=== PATIENT | female | born 1975 | race African-American/Black ===

== ENCOUNTER → 2016-06-27 | Outpatient (CLI) | payer BC | LOC: OD 11:49 | PROVIDERS: ATTEND Nurse Practitioner Primary Care | DX: R31.9 Hematuria, unspecified (principal) ==

== ENCOUNTER 2017-06-09 11:31 | Emergency (ER) | payer BC ==
[2017-06-09] MEDS ORDERED: IPRATROPIUM/ALBUTEROL 0.5-2.5 MG/3 ML AMPUL NEB ONE ×3 (12:22→12:23)
[2017-06-09] MEDS ORDERED: DEXAMETHASONE SOD PHOS INJ 10 MG/1 ML VIAL IM ONE (12:22)
--- NOTE | 2017-06-09 13:06 | RADIOLOGY REPORT (SQ) ---
EXAM DESCRIPTION: CHEST PA/LAT COMPLETED DATE/TIME: 06/09/2017 12:55 pm REASON FOR STUDY: sob wheezing COMPARISON: None. EXAM PARAMETERS: NUMBER OF VIEWS: two views TECHNIQUE: Digital Frontal and Lateral radiographic views of the chest acquired. RADIATION DOSE: NA LIMITATIONS: none FINDINGS: LUNGS AND PLEURA: No opacities, masses or pneumothorax. No pleural effusion. MEDIASTINUM AND HILAR STRUCTURES: No masses or contour abnormalities. HEART AND VASCULAR STRUCTURES: Heart normal size. No evidence for failure. BONES: No acute findings. HARDWARE: None in the chest. OTHER: No other significant finding. IMPRESSION: NO SIGNIFICANT RADIOGRAPHIC FINDING IN THE CHEST. TECHNICAL DOCUMENTATION: JOB ID: [id number] [employer]- All Rights Reserved
--- NOTE | 2017-06-09 13:31 | ER Document Report ---
ED General - General Chief Complaint: Flu Symptoms Stated Complaint: WHEEZING Time Seen by Provider: 06/09/17 12:08 Mode of Arrival: Ambulatory Information source: Patient Notes: 41 yr old female presents with 2 week duration of cough which initially improved but now has wheezing over the past few days. pt was seen by the pcp , noted ot be having bronchitis and treated with azithromycin initially, then Levaquin. Pt noted that she is sob. TRAVEL OUTSIDE OF THE [place] IN LAST 30 DAYS: No - HPI Onset: Other Onset/Duration: Waxing and waning Quality of pain: Achy Severity: Mild Pain Level: 1 Associated symptoms: Nonproductive cough, Shortness of breath Exacerbated by: Walking, Coughing Relieved by: Denies Similar symptoms previously: Yes Recently seen / treated by doctor: Yes - Related Data Allergies/Adverse Reactions: No Known Allergies Allergy (Verified 06/09/17 11:33) Past Medical History - Social History Smoking Status: Never Smoker Cigarette use (# per day): No Chew tobacco use (# tins/day): No Smoking Education Provided: No Frequency of alcohol use: None Drug Abuse: None Family History: Reviewed & Not Pertinent Patient has suicidal ideation: No Patient has homicidal ideation: No - Past Medical History Cardiac Medical History: Reports: Hx Hypertension Pulmonary Medical History: Reports: Hx Bronchitis Renal/ Medical History: Denies: Hx Peritoneal Dialysis - Immunizations Hx Diphtheria, Pertussis, Tetanus Vaccination: No Review of Systems - Review of Systems Notes: REVIEW OF SYSTEMS: CONSTITUTIONAL : Denies fever, chills, or sweats. Denies recent illness. EENT: Denies eye, ear, throat, or mouth pain or symptoms. Denies nasal or sinus congestion or discharge. Denies throat, tongue, or mouth swelling or difficulty swallowing. CARDIOVASCULAR: Denies chest pain. Denies palpitations or racing or irregular heart beat. Denies ankle edema. RESPIRATORY: Admits to wheezing shortness of breath GASTROINTESTINAL: Denies abdominal pain or distention. Denies nausea, vomiting , or diarrhea. Denies blood in vomitus, stools, or per rectum. Denies black, tarry stools. Denies constipation. GENITOURINARY: Denies difficulty urinating, painful urination, burning, frequency, blood in urine, or discharge. FEMALE GENITOURINARY: Denies vaginal bleeding, heavy or abnormal periods, irregular periods. Denies vaginal discharge or odor. MUSCULOSKELETAL: Denies back or neck pain or stiffness. Denies joint pain or swelling. SKIN: Denies rash, lesions or sores. HEMATOLOGIC : Denies easy bruising or bleeding. LYMPHATIC: Denies swollen, enlarged glands. NEUROLOGICAL: Denies confusion or altered mental status. Denies passing out or loss of consciousness. Denies dizziness or lightheadedness. Denies headache. Denies weakness or paralysis or loss of use of either side. Denies problems with gait or speech. Denies sensory loss, numbness, or tingling. Denies seizures. PSYCHIATRIC: Denies anxiety or stress. Denies depression, suicidal ideation, or homicidal ideation. ALL OTHER SYSTEMS REVIEWED AND NEGATIVE. PHYSICAL EXAMINATION: GENERAL: Well-appearing, well-nourished and in no acute distress. HEAD: Atraumatic, normocephalic. EYES: Pupils equal round and reactive to light, extraocular movements intact, conjunctiva are normal. ENT: Nares patent, oropharynx clear without exudates. Moist mucous membranes. NECK: Normal range of motion, supple without lymphadenopathy LUNGS: Inspiratory expiratory wheezing noted all throughout HEART: Regular rate and rhythm without murmurs ABDOMEN: Soft, nontender, nondistended abdomen. No guarding, no rebound. No masses appreciated. Female : deferred Musculoskeletal: Normal range of motion, no pitting or edema. No cyanosis. NEUROLOGICAL: Cranial nerves grossly intact. Normal speech, normal gait. Normal sensory, motor exams PSYCH: Normal mood, normal affect. SKIN: Warm, Dry, normal turgor, no rashes or lesions noted. Dictation was performed using [employer] voice recognition software Physical Exam - Vital signs Vitals: Temp Pulse Resp BP Pulse Ox 98.4 F 100 18 141/99 H 93 06/09/17 11:37 06/09/17 11:37 06/09/17 11:37 06/09/17 11:37 06/09/17 11:37 Course - Re-evaluation Re-evalutation: 06/09/17 13:31 Patient's initial presentation is consistent with bronchitis, I have very low suspicion for a pulmonary emboli given the amount of wheezing that the patient does in fact have. She will be given duo nebs and states that she is breathing much better initial O2 was 93% on room air 06/09/17 14:13 On reevaluation patient still having some wheezing but states she feels much better, I will reevaluate her vitals 06/09/17 14:39 Patient satting 95% on room air feels much better will discharge with extremely close follow-up After performing a Medical Screening Examination, I estimate there is LOW risk for ACUTE CORONARY SYNDROME, PULMONARY EMBOLI, RESPIRATORY FAILURE, SEPSIS OR MENINGITIS, thus I consider the discharge disposition reasonable. I have reevaluated this patient multiple times and no significant life threatening changes are noted. The patient and I have discussed the diagnosis and risks, and we agree with discharging home with close follow-up. We also discussed returning to the Emergency Department immediately if new or worsening symptoms occur. We have discussed the symptoms which are most concerning (e.g., changing or worsening pain, trouble swallowing or breathing, neck stiffness, fever) that necessitate immediate return. - Vital Signs Vital signs: Temp Pulse Resp BP Pulse Ox 98.4 F 100 18 141/99 H 93 06/09/17 11:37 06/09/17 11:37 06/09/17 11:37 06/09/17 11:37 06/09/17 11:37 - Diagnostic Test Radiology reviewed: Image reviewed, Reports reviewed - no acute abnormality Discharge - Discharge Clinical Impression: Acute wheezy bronchitis Condition: Stable Disposition: HOME, SELF-CARE Instructions: Bronchitis With Bronchospasm (Wheezing) ([facility]) Additional Instructions: Follow up with your physician tomorrow for further care or return to the ED IMMEDIATELY if symptoms worsen or new concerns occur. If you cannot afford to follow up with your primary care physician a list of low cost clinics have been provided at the end of your discharge papers as well. Prescriptions: Prednisone [Deltasone 20 mg Tablet] 3 tab PO DAILY 5 Days tablet
[2017-06-09] MEDS ORDERED: ALBUTEROL SULFATE HFA (90 MCG/PUFF) 8 GM MDI (1 MDI/ER DISP) IH PRN (14:38)
[2017-06-09 14:44] VITALS: BP 145/83
== END 2017-06-09 14:44 | disposition home or self-care (01) ==
LOC: ER 11:31
DX: J20.9 Acute bronchitis, unspecified (principal); R06.2 Wheezing; I10 Essential (primary) hypertension
CPT/HCPCS: 94640 ×2; 99283; 96372; 87804; 71020; J1100; J7620

== ENCOUNTER 2017-10-16 15:42 | Emergency (ER) | payer BC ==
[2017-10-16 15:49] VITALS: BP 138/87
--- NOTE | 2017-10-16 15:55 | ER Document Report ---
HPI - HPI Patient complains to provider of: Chin pimples Onset: Other - Several days Onset/Duration: Gradual Pain Level: 1 Context: 41-year-old female that gets boils on her chin developed 2 over the past 3 days. One is drained a little bit. She did not go to work today has a Band- Aid on it. Septra has helped in the past. No fever or chills. Associated Symptoms: None Exacerbated by: Denies Relieved by: Denies - ROS ROS below otherwise negative: Yes Systems Reviewed and Negative: Yes All other systems reviewed and negative - REPRODUCTIVE Reproductive: DENIES: : Past Medical History - General Information source: Patient - Social History Smoking Status: Unknown if Ever Smoked Frequency of alcohol use: None Drug Abuse: None Occupation: [employer] Lives with: Family Family History: Reviewed & Not Pertinent - Past Medical History Cardiac Medical History: Reports: Hx Hypertension Pulmonary Medical History: Reports: Hx Bronchitis Renal/ Medical History: Denies: Hx Peritoneal Dialysis Surgical Hx: Negative - Immunizations Hx Diphtheria, Pertussis, Tetanus Vaccination: No Vertical Provider Document - CONSTITUTIONAL Agree With Documented VS: Yes Exam Limitations: No Limitations - INFECTION CONTROL TRAVEL OUTSIDE OF THE [place] IN LAST 30 DAYS: No - HEENT HEENT: Normocephalic Notes: 2 indurated almost coalesced chin lesions most likely folliculitis/furuncle - NECK Neck: Supple. negative: Lymphadenopathy-Left, Lymphadenopathy-Right - MUSCULOSKELETAL/EXTREMETIES Musculoskeletal/Extremeties: MAEW - NEURO Level of Consciousness: Awake, Alert - DERM Notes: See above Course - Vital Signs Vital signs: Temp Pulse Resp BP Pulse Ox 97.9 F 76 18 138/87 H 97 10/16/17 15:47 10/16/17 15:47 10/16/17 15:47 10/16/17 15:47 10/16/17 15:47 Discharge - Discharge Clinical Impression: Furuncle of chin Condition: Good Disposition: HOME, SELF-CARE Instructions: Trimethoprim-Sulfa ([facility]), Warm Packs ([facility]), Bactroban Ointment ( [facility]) Additional Instructions: Warm compress Septra twice a day for a week Bactroban small amount 3 times a day for 5 days Return for worsening symptoms Prescriptions: Mupirocin [Bactroban 2% Ointment 22 gm] 1 applic TP TID #22 gm Sulfamethoxazole/Trimethoprim [Sulfamethoxazole-Tmp Ds Tablet] 1 each PO BID # 14 tablet Forms: Return to Work
== END 2017-10-16 15:57 | disposition home or self-care (01) ==
LOC: ER 15:42
DX: L02.02 Furuncle of face (principal); I10 Essential (primary) hypertension
CPT/HCPCS: 99283

== ENCOUNTER 2017-10-18 08:49 | Emergency (ER) | payer BC ==
[2017-10-18 08:55] VITALS: BP 145/92
--- NOTE | 2017-10-18 09:30 | ER Document Report ---
ED General - General Chief Complaint: Boil Stated Complaint: POSSIBLE ABSCESS REVISIT Time Seen by Provider: 10/18/17 09:12 Mode of Arrival: Ambulatory Information source: Patient Notes: Patient presents to the emergency department this morning with complaints of boil follow-up from October 16. She reports she was evaluated and treated in the emergency department with ointment and antibiotics. She reports no I&D was done. She reports area is larger more tender. Reports some bloody drainage. She also reports that her whole body feels achy today. History of MRSA. Denies fever nausea vomiting diarrhea. Two areas on chin of scraped skin where patient admits to picking at areas. TRAVEL OUTSIDE OF THE [place] IN LAST 30 DAYS: No - HPI Onset: Other Onset/Duration: Persistent Quality of pain: Achy Pain Level: 3 Associated symptoms: None. denies: Fever Exacerbated by: Denies Relieved by: Denies Similar symptoms previously: Yes Recently seen / treated by doctor: Yes - Related Data Allergies/Adverse Reactions: No Known Allergies Allergy (Verified 10/18/17 08:51) Past Medical History - General Information source: Patient Last Menstrual Period: 10/09/17 - Social History Smoking Status: Never Smoker Frequency of alcohol use: Rare Drug Abuse: None Occupation: [employer] Family History: Reviewed & Not Pertinent Patient has suicidal ideation: No Patient has homicidal ideation: No - Past Medical History Cardiac Medical History: Reports: Hx Hypertension Pulmonary Medical History: Reports: Hx Bronchitis Renal/ Medical History: Denies: Hx Peritoneal Dialysis Infectious Medical History: Reports: Hx MRSA - Immunizations Hx Diphtheria, Pertussis, Tetanus Vaccination: No Review of Systems - Review of Systems Notes: Review HPI for review of systems., All other systems negative Physical Exam - Vital signs Vitals: Temp Pulse Resp BP Pulse Ox 98.3 F 73 16 145/92 H 97 10/18/17 08:52 10/18/17 08:52 10/18/17 08:52 10/18/17 08:52 10/18/17 08:52 - Notes Notes: PHYSICAL EXAMINATION: GENERAL: Well-appearing and in no acute distress HEAD: Atraumatic, normocephalic. EYES: Pupils equal round and reactive to light, extraocular movements intact, sclera anicteric, conjunctiva are normal. ENT: nares patent, oropharynx clear without exudates. Moist mucous membranes. NECK: Normal range of motion, supple without lymphadenopathy LUNGS: CTAB and equal. No wheezes rales or rhonchi. HEART: Regular rate and rhythm without murmurs ABDOMEN: Soft, no tenderness. No guarding, no rebound EXTREMITIES: Normal range of motion, no pitting edema. No cyanosis. NEUROLOGICAL: Cranial nerves grossly intact. Normal sensory/motor exams. PSYCH: Normal mood, normal affect. SKIN: Warm, Dry, normal Turgor, - Skin Skin Temperature: Warm Skin Moisture: Dry Skin Color: Normal Location of irregularity: Face - chin- body, two small areas of epidermis peeled off from where patient has been picking at skin Irregularity with: Swelling, Tenderness - indurated ~ 1.5 cm, fluctuant Course - Re-evaluation Re-evalutation: 10/18/17 10:17 Small incision made area probed the very small amount of drainage obtained. Patient instructed on the importance of warm pack to not pick at area take medication and apply ointment as prescribed. She verbalized understanding to all instructions. - Vital Signs Vital signs: Temp Pulse Resp BP Pulse Ox 98.3 F 73 16 145/92 H 97 10/18/17 08:52 10/18/17 08:52 10/18/17 08:52 10/18/17 08:52 10/18/17 08:52 Procedures - Incision and Drainage Face Type: Simple Anesthetic type: 1% Lidocaine I&D procedure: Shurclens applied Incision Method: Incision made by scalpel Amount/type of drainage: bloody drainage, no pus Adult Head Front/Back picture: 1 - #1 5 mm incision made into chin, area probed, very small pus obtained, bloody drainage noted 2 - #2 small firm area ~ 1 cm around, no pustule, not fluctuant Discharge - Discharge Clinical Impression: Facial abscess Condition: Stable Disposition: HOME, SELF-CARE Instructions: Abscess ([facility]), Post Incision and Drainage Additional Instructions: *You have been treated for an abscess with incision and drainage *Take medication as prescribed. apply ointment as prescribed *Monitor the site for signs of increasing infection such as increasing pain, redness, swelling, warmth- do not pick at the area- good handwashing *Wash the site twice daily as discussed *Follow up with a primary care provider in 3 days for recheck *Return to ED for signs of increasing infection, worsening condition, changes, needs Forms: Elevated Blood Pressure, Return to Work Referrals: AAKASH CALLEJAS SHELL TRIM OPERATOR [Primary Care Provider] - Follow up in 3-5 days
== END 2017-10-18 09:55 | disposition home or self-care (01) ==
LOC: ER 08:49
DX: L02.01 Cutaneous abscess of face (principal); Z86.14 Personal history of Methicillin resistant Staphylococcus aureus infection; I10 Essential (primary) hypertension
CPT/HCPCS: 87070; 87075; 87205; 99283

== ENCOUNTER → 2018-10-30 | Outpatient (CLI) | payer BC ==
--- NOTE | 2018-10-30 10:56 | WOMENS IMAGING REPORT ---
EXAM DESCRIPTION: 3D SCREENING MAMMO BILAT COMPLETED DATE/TIME: 10/30/2018 9:23 am REASON FOR STUDY: Z12.31 ROUTINE 3D BILATERAL SCREENING Z12.31 ENCNTR SCREEN MAMMOGRAM FOR MALIGNAN T NEOPLASM OF [place]O COMPARISON: None. EXAM PARAMETERS: Views: Standard craniocaudal and mediolateral oblique views of each breast recorded using digital acquisition and breast tomosynthesis. Read with the assistance of CAD. .[facility] - [employer] Manager Version 9.2 LIMITATIONS: None. FINDINGS: No suspicious masses, suspicious calcifications or architectural distortion. No areas of c oncern. IMPRESSION: Assessment: Negative MAMMOGRAM. BIRADS 1. BREAST DENSITY: b. There are scattered areas of fibroglandular density. BIRAD: 1 NEGATIVE RECOMMENDATION: ROUTINE SCREENING COMMENT: The patient has been notified of the results by letter per MQSA requirements. Additional no tification policies are in place for contacting patient with suspicious or incomplete findings. Quality ID #[id number]: The [employer] recommends an annual screening mammogram for women aged 40 years or over. This facility utilizes a reminder system to ensure that all patients receive reminder letters, and/or direct phone calls for appointments. This includes reminders for routine scr eening mammograms, diagnostic mammograms, or other Breast Imaging Interventions when appropriate. Th is patient will be placed in the appropriate reminder system. TECHNICAL DOCUMENTATION: FINDING NUMBER: (1) ASSESSMENT: (1) JOB ID: [id number] [employer]- All Rights Reserved Reading location - IP/workstation name: [email or web address]
== END ==
LOC: WI 09:08
PROVIDERS: ATTEND Nurse Practitioner Primary Care
DX: Z12.31 Encounter for screening mammogram for malignant neoplasm of breast (principal)
CPT/HCPCS: 77063; 77067